=== PATIENT | male | born 1945 | race Caucasian/White ===

== ENCOUNTER → 2025-01-31 | Outpatient (CLI) | payer BC ==
--- NOTE | 2025-01-31 11:57 | BD ---
EXAMINATION TYPE: Axial Bone Density DATE OF EXAM: 01/31/2025 CLINICAL HISTORY: 79 years old Male. 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 Bone mineral density as measured about the Lumbar spine is: ----- L1-L4(G/cm2): 1.522 T Score Values are as follows: ----- L1: 0.9 ----- L2: 2.5 ----- L3: 3.1 ----- L4: 4.5 ----- L1-L4: 2.9 Z Score Values are as follows: ----- L1: 1.3 ----- L2: 2.8 ----- L3: 3.3 ----- L4: 4.7 ----- L1-L4: 3.1 Bone mineral density baseline Bone mineral density about the R hip (g/cm2): 0.851 Bone mineral density about the L hip (g/cm2): 0.869 T Score values are as follows: -----R Neck: -2.0 -----L Neck: -2.3 -----R Total: -1.2 -----L Total: -1.1 Z Score values are as follows: -----R Neck: -0.9 -----L Neck: -1.2 -----R Total: -0.6 -----L Total: -0.5 Bone mineral density baseline FRAX%s: The graph provided illustrates a 14.6% chance for a major osteoporotic fx and a 7.8% chance f or the hips probability for fx in 10 years time. IMPRESSION: Osteopenia (T Score between -2.5 and -1). There is slightly increased risk of fracture and the patient may be considered for treatment. Re-Screen 2-5 years. NOTE: T-SCORE=SD OF THE YOUNG ADULT MEAN. [facility], , 01/31/2025 11:54 AM
== END | disposition home or self-care (01) ==
LOC: RADBDWWP 07:07
PROVIDERS: ATTEND Family Medicine
DX: M85.89 Other specified disorders of bone density and structure, multiple sites (principal)
CPT/HCPCS: 77080